=== PATIENT | male | born 1955 | race Caucasian/White ===

== ENCOUNTER 2016-09-22 13:24 | Inpatient (IN) | payer OTHER, MEDICAID ==
[~2016-09-22] VITALS: Ht 172.7 cm; Wt 60.1 kg
[2016-09-22] MEDS ORDERED: ALBUTEROL SULF 2.5 MG/0.5ML(0.5%) NEB SOLN NEB STA (13:48)
[2016-09-22] MEDS ORDERED: methylPREDNISolone SOD SUCC 125 MG/2 ML VL IV ONE (14:00)
[2016-09-22] MEDS ORDERED: IPRATROPIUM BROM 0.5 MG/2.5ML INH SOL NEB ONE (14:00)
[2016-09-22 14:13] LABS: Basophils # (auto) 0 uL; Basophils % (auto) 0.1 % (0.0-2.0); Eosinophils # (auto) 0.1 uL; Eosinophils % (auto) 1.1 % (0.0-7.0); Hematocrit 40.2 % (41.0-53.0); Hemoglobin 13.9 g/dL (13.5-17.5); Lymphocytes # (auto) 1.1 uL; Mean Corpuscular Hemoglobin 32.1 pg (28.0-32.0); Mean Corpuscular Hgb Conc. 34.6 g/dL (32.0-36.0); Mean Corpuscular Volume 92.8 fL (80.0-100.0); Mean Platelet Volume 7.3 fL (7.4-10.4); Monocytes # (auto) 0.9 uL; Monocytes % (auto) 8.7 % (0.0-12.0); Neutrophils # (auto) 8.2 uL; Neutrophils % (auto) 79.1 % (37.0-80.0); Platelet Count (auto) 346 10^3/uL (140-450); Red Cell Distribution Width 13.2 % (11.6-16.0); White Blood Cell 10.4 10^3/uL (4.4-10.8)
[2016-09-22 14:38] LABS: Albumin 4.4 g/dL (3.4-5.0); Alkaline Phosphatase 185 U/L (45-117); Anion Gap 12 (5-15); Aspartate Aminotransferase 31 U/L (15-37); BUN/Creatinine Ratio 14.4; Bilirubin, Total 0.6 mg/dL (0.2-1.0); Blood Urea Nitrogen 17 mg/dL (7-18); Calcium 9.1 mg/dL (8.5-10.1); Carbon Dioxide 24 mmol/L (21-32); Chloride 98 mmol/L (98-107); GFR African American 81 mL/min; GFR Non-African American 67 mL/min; Glucose 94 mg/dL (74-106); Magnesium 2.1 mg/dL (1.6-2.6); Potassium 4.7 mmol/L (3.5-5.1); Sodium 134 mmol/L (136-145); Total Protein 8.4 g/dL (6.4-8.2)
[2016-09-22 14:53] LABS: B-Type Natriuretic Peptide 53.19 pg/mL (0-100)
[2016-09-22] MEDS ORDERED: LORazepam 2MG/ML-1ML VIAL IV PRN (15:00)
[2016-09-22] MEDS ORDERED: FOLIC ACID 1 MG in D5W 5% 50 ML IV ONE (15:00)
[2016-09-22] MEDS ORDERED: THIAMINE HCL 100 MG/ML 2ML VIAL IV ONE ×2 (15:00→17:45)
[2016-09-22] MEDS ORDERED: cefTRIAXone 1GM/50ML D5W 50 ML IV ONE ×2 (15:00→17:45)
[2016-09-22] MEDS ORDERED: ASPirin 81 mg TAB PO ONE (15:00)
[2016-09-22] MEDS ORDERED: AZITHROMYCIN 250 MG TAB PO ONE ×2 (15:00→17:45)
[2016-09-22 15:34] LABS: Temperature: 22.2 C (20.0-25.0)
[2016-09-22 15:47] VITALS: BP 150/88
[2016-09-22] MEDS ORDERED: AMLO5TAB2 PO (16:26)
[2016-09-22] MEDS ORDERED: BUPR150T6 PO (16:26)
[2016-09-22] MEDS ORDERED: TRAM50TA2 PO (16:26)
[2016-09-22] MEDS ORDERED: FLUT50SP13 (16:26)
[2016-09-22] MEDS ORDERED: LAMO150T26 PO (16:26)
[2016-09-22] MEDS ORDERED: ALPR1TAB7 PO (16:26)
[2016-09-22] MEDS ORDERED: ZOLP5TAB5 PO (16:26)
[2016-09-22] MEDS ORDERED: OMEP20CA5 OR (16:26)
[2016-09-22] MEDS ORDERED: ALBU18 IN (16:26)
[2016-09-22] MEDS ORDERED: METO-158 PO (16:26)
[2016-09-22] MEDS ORDERED: ROPI1TAB22 PO (16:26)
[2016-09-22] MEDS ORDERED: SIMV-8 PO (16:26)
[2016-09-22] MEDS ORDERED: LEV50T PO (16:26)
[2016-09-22] MEDS: ONDANSETRON HCL 4 MG/2 ML VIAL IV PRN (16:30)
[2016-09-22] MEDS: ACETAMINOPHEN 325 MG TAB PO PRN (16:31)
[2016-09-22 17:04] VITALS: BP 151/78
[2016-09-22] MEDS: FAMOTIDINE 20 MG TAB PO SCH ×2 (17:44→21:58)
[2016-09-22] MEDS: ASPirin-EC 81 mg tab PO SCH (17:44)
[2016-09-22] MEDS: METOPROLOL SUCCINATE XL 50 MG TAB PO SCH (17:45)
[2016-09-22] MEDS: IPRATROPIUM BROM 0.5 MG/2.5ML INH SOL NEB SCH (18:00)
[2016-09-22] MEDS: ALBUTEROL SULF 2.5 MG/0.5ML(0.5%) NEB SOLN NEB SCH (18:00)
[2016-09-22] MEDS: buPROPion HCL 75 MG TAB PO SCH (19:24)
[2016-09-22 19:30] VITALS: BP 124/77
[2016-09-22 21:37] VITALS: BP 124/77
[2016-09-22] MEDS: methylPREDNISolone SOD SUCC 40 MG/ML VL IV SCH (21:57)
[2016-09-22] MEDS: lamoTRIgine 25 MG TAB PO SCH (21:57)
[2016-09-22] MEDS: PRAMIPEXOLE DIHYDROCHLORIDE MO 0.25 MG TAB PO SCH (21:58)
[2016-09-22] MEDS: ATORVASTATIN 20 MG TAB PO SCH (21:58)
[2016-09-23] VITALS (7 sets, daily range): BP systolic 121–140; BP diastolic 71–83
[2016-09-23] MEDS: ACETAMINOPHEN 325 MG TAB PO PRN ×2 (04:16→11:34)
[2016-09-23] MEDS: methylPREDNISolone SOD SUCC 40 MG/ML VL IV SCH ×3 (05:13→22:14)
[2016-09-23 05:30] LABS: Basophils # (auto) 0 uL; Eosinophils # (auto) 0 uL; Hematocrit 33.5 % (41.0-53.0); Hemoglobin 11.5 g/dL (13.5-17.5); Lymphocytes # (auto) 0.6 uL; Lymphocytes % (auto) 6.6 % (10.0-50.0); Mean Corpuscular Hemoglobin 32.1 pg (28.0-32.0); Mean Corpuscular Hgb Conc. 34.2 g/dL (32.0-36.0); Mean Platelet Volume 7.7 fL (7.4-10.4); Monocytes # (auto) 0.2 uL; Monocytes % (auto) 2.5 % (0.0-12.0); Neutrophils # (auto) 8.4 uL; Neutrophils % (auto) 90.9 % (37.0-80.0); Platelet Count (auto) 300 10^3/uL (140-450); Red Cell Distribution Width 13.3 % (11.6-16.0); White Blood Cell 9.3 10^3/uL (4.4-10.8)
[2016-09-23 05:49] LABS: Potassium 4.4 mmol/L (3.5-5.1)
[2016-09-23 05:56] LABS: Calcium 8.4 mg/dL (8.5-10.1)
[2016-09-23] MEDS: buPROPion HCL 75 MG TAB PO SCH ×2 (06:18→18:02)
[2016-09-23] MEDS: IPRATROPIUM BROM 0.5 MG/2.5ML INH SOL NEB SCH ×4 (06:26→18:00)
[2016-09-23] MEDS: ALBUTEROL SULF 2.5 MG/0.5ML(0.5%) NEB SOLN NEB SCH ×4 (06:26→18:00)
[2016-09-23] MEDS ORDERED: LEVOTHYROXINE SODIUM 50 MCG TAB PO SCH (07:00)
[2016-09-23] MEDS: ASPirin-EC 81 mg tab PO SCH (09:28)
[2016-09-23] MEDS: lamoTRIgine 25 MG TAB PO SCH ×2 (09:28→22:15)
[2016-09-23] MEDS: FAMOTIDINE 20 MG TAB PO SCH ×2 (09:28→22:15)
[2016-09-23] MEDS: AZITHROMYCIN 250 MG TAB PO SCH (09:28)
[2016-09-23] MEDS: METOPROLOL SUCCINATE XL 50 MG TAB PO SCH (09:29)
[2016-09-23] MEDS: cefTRIAXone 1GM/50ML D5W 50 ML IV SCH (09:30)
[2016-09-23] MEDS: ONDANSETRON HCL 4 MG/2 ML VIAL IV PRN (11:26)
[2016-09-23] MEDS ORDERED: LEVOTHYROXINE SODIUM 50 MCG TAB PO ONE (11:30)
[2016-09-23] MEDS: THIAMINE HCL 100 MG/ML 2ML VIAL IV SCH (12:05)
[2016-09-23] MEDS: FOLIC ACID 1 MG in D5W 5% 50 ML INJ SCH (13:45)
[2016-09-23 16:12] LABS: Urine RBC None Seen /hpf (0 - 3)
[2016-09-23 16:25] LABS: Urine Bilirubin Negative (Negative); Urine Blood TRACE /uL (Negative); Urine Color Yellow (Yellow); Urine Glucose Normal (Normal); Urine Ketone Negative (Negative); Urine Nitrite Negative (Negative); Urine Urobilinogen Normal (Negative)
[2016-09-23] MEDS ORDERED: ZOLPIDEM TARTRATE 5 MG TAB PO PRN (20:15)
[2016-09-23] MEDS: ATORVASTATIN 20 MG TAB PO SCH (22:15)
[2016-09-23] MEDS: PRAMIPEXOLE DIHYDROCHLORIDE MO 0.25 MG TAB PO SCH ×2 (22:15)
[2016-09-24 05:46] VITALS: BP 123/73
[2016-09-24] MEDS: methylPREDNISolone SOD SUCC 40 MG/ML VL IV SCH (05:58)
[2016-09-24] MEDS: buPROPion HCL 75 MG TAB PO SCH ×2 (05:58→17:47)
[2016-09-24] MEDS ORDERED: LEVOTHYROXINE SODIUM 50 MCG TAB PO SCH (07:00)
[2016-09-24] MEDS: IPRATROPIUM BROM 0.5 MG/2.5ML INH SOL NEB SCH ×3 (07:40→18:56)
[2016-09-24] MEDS: ALBUTEROL SULF 2.5 MG/0.5ML(0.5%) NEB SOLN NEB SCH ×3 (07:40→18:56)
[2016-09-24] MEDS: AZITHROMYCIN 250 MG TAB PO SCH (08:51)
[2016-09-24] MEDS: FAMOTIDINE 20 MG TAB PO SCH ×2 (08:51→22:00)
[2016-09-24] MEDS: ASPirin-EC 81 mg tab PO SCH (08:51)
[2016-09-24] MEDS: cefTRIAXone 1GM/50ML D5W 50 ML IV SCH (08:52)
[2016-09-24] MEDS: METOPROLOL SUCCINATE XL 50 MG TAB PO SCH (08:52)
[2016-09-24] MEDS: LEVOTHYROXINE SODIUM 100 MCG TAB PO SCH (08:52)
[2016-09-24] MEDS: THIAMINE HCL 100 MG/ML 2ML VIAL IV SCH (08:52)
[2016-09-24] MEDS: lamoTRIgine 25 MG TAB PO SCH ×2 (08:52→21:59)
[2016-09-24 09:00] VITALS: BP 144/82
[2016-09-24] MEDS: ACETAMINOPHEN 325 MG TAB PO PRN ×2 (09:05→17:46)
[2016-09-24] MEDS: FOLIC ACID 1 MG in D5W 5% 50 ML INJ SCH (11:44)
[2016-09-24] MEDS ORDERED: predniSONE 20 MG TAB PO ONE (12:00)
[2016-09-24 13:00] VITALS: BP 121/80
[2016-09-24 17:00] VITALS: BP 124/74
[2016-09-24 21:59] VITALS: BP 115/63
[2016-09-24] MEDS: ATORVASTATIN 20 MG TAB PO SCH (21:59)
[2016-09-24] MEDS: PRAMIPEXOLE DIHYDROCHLORIDE MO 0.25 MG TAB PO SCH ×2 (22:00→22:01)
[2016-09-25 05:28] VITALS: BP 143/86
[2016-09-25] MEDS: buPROPion HCL 75 MG TAB PO SCH (06:58)
[2016-09-25] MEDS: IPRATROPIUM BROM 0.5 MG/2.5ML INH SOL NEB SCH ×3 (07:07→11:10)
[2016-09-25] MEDS: ALBUTEROL SULF 2.5 MG/0.5ML(0.5%) NEB SOLN NEB SCH ×3 (07:07→11:10)
[2016-09-25 08:00] VITALS: BP 140/77
[2016-09-25 09:00] VITALS: BP 140/77
[2016-09-25] MEDS ORDERED: predniSONE 20 MG TAB PO SCH (10:00)
[2016-09-25] MEDS: cefTRIAXone 1GM/50ML D5W 50 ML IV SCH (10:01)
[2016-09-25] MEDS: THIAMINE HCL 100 MG/ML 2ML VIAL IV SCH (10:02)
[2016-09-25] MEDS: LEVOTHYROXINE SODIUM 100 MCG TAB PO SCH (10:02)
[2016-09-25] MEDS: ASPirin-EC 81 mg tab PO SCH (10:02)
[2016-09-25] MEDS: FAMOTIDINE 20 MG TAB PO SCH (10:02)
[2016-09-25] MEDS: AZITHROMYCIN 250 MG TAB PO SCH (10:03)
[2016-09-25] MEDS: lamoTRIgine 25 MG TAB PO SCH (10:03)
[2016-09-25] MEDS: METOPROLOL SUCCINATE XL 50 MG TAB PO SCH (10:04)
[2016-09-25 14:19] VITALS: BP 106/52
== END 2016-09-25 16:05 | disposition home or self-care (01) | DRG 190 ==
LOC: ER 13:32 → OVERFLOW 13:33 → ER 14:09 → OVERFLOW 15:21 → EAST 15:38 → WEST WING 16:54
PROVIDERS: ADMIT Internal Medicine; ATTEND Internal Medicine
DX: J44.0 Chronic obstructive pulmonary disease with (acute) lower respiratory infection (principal); J18.9 Pneumonia, unspecified organism; J44.1 Chronic obstructive pulmonary disease with (acute) exacerbation; E03.9 Hypothyroidism, unspecified; F10.10 Alcohol abuse, uncomplicated; F17.200 Nicotine dependence, unspecified, uncomplicated; F31.9 Bipolar disorder, unspecified; F41.9 Anxiety disorder, unspecified; G25.3 Myoclonus; G25.81 Restless legs syndrome; G47.00 Insomnia, unspecified; J32.0 Chronic maxillary sinusitis; I10 Essential (primary) hypertension; Z82.49 Family history of ischemic heart disease and other diseases of the circulatory system; Z85.21 Personal history of malignant neoplasm of larynx; Z88.0 Allergy status to penicillin
CPT/HCPCS: 36415; 70450; 70551; 71010; 80048; 80053; 81001; 82728; 83540; 83550; 83735; 83880; 84443; 84484; 85025; 87040; 93005; 94640; 95819; 96374; 96375; G0434; J0696; J2405; J7060